=== PATIENT | female | born 1975 | race Caucasian/White ===

== ENCOUNTER → 2018-04-27 | Outpatient (CLI) | payer MEDICAID, OTHER ==
--- NOTE | 2018-04-27 12:51 | EST ---
EXERCISE STRESS DATE OF SERVICE: 04/27/2018 AGE: 43 SEX: Female HT: 5'4" WT: 150 PROTOCOL: Levi STAGE: II DURATION OF EXERCISE: 7 minutes 19 seconds HEART RATE REST: 74 BLOOD PRESSURE REST: 152/92 MAXIMUM HEART RATE ACHIEVED: 151 MAXIMUM BLOOD PRESSURE: 174/69 85% MPHR: 150 100% MPHR: 177 METS: 8.5 INDICATIONS: Chest pain. CLINICAL INFORMATION: Baseline EKG revealed normal sinus rhythm without significant ST-T changes. Patient walked on a standard Levi protocol for 7 minutes 19 seconds achieved a maximal heart rate of 151 beats per minute which is 85% of predicted maximal. She developed some calf pain and had shortness of breath, but did not have angina. There was some baseline artifact but no clear-cut evidence of ischemia was noted. By EKG criteria, this is a negative stress test with limited exercise capacity. Her peak blood pressure was 174/69. Resting blood pressure was 152/92. The patient had some calf discomfort with cramps and shortness of breath but did not have angina. This is however negative stress test by EKG criteria. MMODL / IJN: [id number] /
== END | disposition home or self-care (01) ==
LOC: RADNMMAIN 10:57
PROVIDERS: ATTEND Nurse Practitioner
DX: R07.89 Other chest pain (principal)
CPT/HCPCS: 93017

== ENCOUNTER → 2018-10-04 | Outpatient (CLI) | payer MEDICAID ==
--- NOTE | 2018-10-04 11:00 | MM ---
Reason for exam: screening (asymptomatic). Last mammogram was performed 1 year and 1 month ago. History: Patient is nulliparous. Family history of breast cancer in grandmother, breast cancer in aunt, and breast cancer in cousin. Took hormonal contraceptives for 2 years. Physical Findings: A clinical breast exam by your physician is recommended on an annual basis and results should be correlated with mammographic findings. MG 3D Screening Mammo W/Cad Bilateral CC and MLO view(s) were taken. Prior study comparison: August 24, 2017, bilateral MG 3d screening mammo w/cad. July 28, 2016, bilateral MG 3d screening mammo w/cad. The breast tissue is heterogeneously dense. This may lower the sensitivity of mammography. No significant changes when compared with prior studies. ASSESSMENT: Benign, BI-RAD 2 RECOMMENDATION: Routine screening mammogram of both breasts in 1 year.
== END | disposition home or self-care (01) ==
LOC: RADMAMWWP 06:48
PROVIDERS: ATTEND Internal Medicine Geriatric Medicine
DX: Z12.31 Encounter for screening mammogram for malignant neoplasm of breast (principal)
CPT/HCPCS: 77063; 77067

== ENCOUNTER 2018-10-26 16:20 | Emergency (ER) | payer MEDICAID ==
[2018-10-26 16:42] VITALS: RESP 18; TEMP 97.2
[2018-10-26] MEDS ORDERED: SODIUM CHLORIDE 0.9% 1,000 ML IV STA (16:48)
[2018-10-26] MEDS ORDERED: KETOROLAC 30 MG/ML 1 ML VIAL IVP STA (17:16)
[2018-10-26 17:29] LABS: Basophils % (A) 0 %; Eosinophils # (A) 0.2 k/uL (0-0.7); Eosinophils % (A) 2 %; HCT 42.9 % (34.0-46.0); Lymphocytes # (A) 1.9 k/uL (1.0-4.8); Lymphocytes % (A) 18 %; MCH 29.7 pg (25.0-35.0); MCHC 32.7 g/dL (31.0-37.0); MCV 90.7 fL (80.0-100.0); Mean Platelet Volume 7.5; Monocytes # (A) 0.5 k/uL (0-1.0); Monocytes % (A) 5 %; Neutrophils # (A) 8.1 k/uL (1.3-7.7); Neutrophils % (A) 75 %; Platelet Count 301 k/uL (150-450); RBC 4.73 m/uL (3.80-5.40); WBC 10.9 k/uL (3.8-10.6)
[2018-10-26 17:35] LABS: Appearance,Urine Clear (Clear); Bacteria,Urine Rare /hpf; Bilirubin,Urine Negative (Negative); Blood,Urine Moderate (Negative); Color,Urine Light Yellow; Glucose,Urine (UA) Negative (Negative); Ketones,Urine Negative (Negative); Leukocyte Esterase,Urine Negative (Negative); Nitrite,Urine Negative (Negative); PH, Urine 5.5 (5.0-8.0); Protein,Urine Negative (Negative); RBC,Urine 15 /hpf (0-5); Specific Gravity,Urine 1.005 (1.001-1.035); Squamous Epithelial Cell,Urine 2 /hpf (0-4); Urobilinogen,Urine <2.0 mg/dL (<2.0); WBC,Urine <1 /hpf (0-5)
[2018-10-26 17:39] LABS: ALT 24 U/L (9-52); AST 27 U/L (14-36); Albumin 4.8 g/dL (3.5-5.0); Alkaline Phosphatase 59 U/L (38-126); Amylase 60 U/L (30-110); Anion Gap 8 mmol/L; Blood Urea Nitrogen 15 mg/dL (7-17); Calcium 9.8 mg/dL (8.4-10.2); Carbon Dioxide 27 mmol/L (22-30); Chloride 105 mmol/L (98-107); Glucose 85 mg/dL (74-99); Lipase 148 U/L (23-300); Potassium 3.7 mmol/L (3.5-5.1); Sodium 140 mmol/L (137-145); Total Bilirubin 0.5 mg/dL (0.2-1.3); Total Protein 7.9 g/dL (6.3-8.2)
--- NOTE | 2018-10-26 17:55 | ED ---
Abdominal Pain HPI - General Chief Complaint: Abdominal Pain Stated Complaint: Shooting Side Pain Time Seen by Provider: 10/26/18 16:48 Source: patient, RN notes reviewed Mode of arrival: ambulatory Limitations: no limitations - History of Present Illness Initial Comments: 43-year-old female presents emergency Department chief complaint of left-sided rib pain. Patient states that it started last night. Patient states has been consistently worse with deep inspiration. States it is worse with movement. Denies any recent URI symptoms including cough or chest congestion. Patient states she has no history DVT or PE. Patient has no prior cardiac disease including hypertension, hyperlipidemia, diabetes or family heart disease. Patient states she does have a history kidney stones but this feels different. She states she has no abdominal pain denies any nausea, vomiting, diarrhea constipation. - Related Data Home Medications Medication Instructions Recorded Confirmed Multivitamin,Therapeutic [Thera] 1 tab PO DAILY 10/26/18 10/26/18 Omeprazole 20 mg PO DAILY 10/26/18 10/26/18 Vitamin B Complex 1 cap PO DAILY 10/26/18 10/26/18 Zinc 50 mg PO DAILY 10/26/18 10/26/18 Previous Rx's Medication Instructions Recorded Ibuprofen [Motrin] 600 mg PO Q8HR PRN #30 tab 10/26/18 Allergies Allergy/AdvReac Type Severity Reaction Status Date / Time latex AdvReac DRY SKIN Verified 10/26/18 17:06 Review of Systems ROS Statement: Those systems with pertinent positive or pertinent negative responses have been documented in the HPI. ROS Other: All systems not noted in ROS Statement are negative. Past Medical History Past Medical History: GI Bleed Additional Past Medical History / Comment(s): ULCER 10 YEARS AGO, UTI, ANXIETY( XANAX), ADHD(ADDERAL), FRONT TOP TOOTH IMPLANT History of Any Multi-Drug Resistant Organisms: None Reported Past Surgical History: No Surgical Hx Reported Additional Past Surgical History / Comment(s): CYST ON OVARY/UTERUS/BOWEL DRAINED, IMPLANTED TOP FRONT TOOTH Additional Past Anesthesia/Blood Transfusion Reaction / Comment(s): DIFFICULTY WAKING. CLAUSTERPHOBIA. Past Psychological History: ADD/ADHD, Anxiety Smoking Status: Former smoker Past Alcohol Use History: None Reported Past Drug Use History: None Reported - Past Family History Mother Family Medical History: Osteoarthritis (OA) Father Family Medical History: Cancer, Coronary Artery Disease (CAD) Additional Family Medical History / Comment(s): LUNG CANCER, SMOKER General Exam Limitations: no limitations General appearance: alert, in no apparent distress Head exam: Present: atraumatic, normocephalic, normal inspection Neck exam: Present: normal inspection, full ROM. Absent: tenderness, meningismus, lymphadenopathy Respiratory exam: Present: normal lung sounds bilaterally, chest wall tenderness (Left-sided). Absent: respiratory distress, wheezes, rales, rhonchi , stridor Cardiovascular Exam: Present: regular rate, normal rhythm, normal heart sounds. Absent: systolic murmur, diastolic murmur, rubs, gallop, clicks GI/Abdominal exam: Present: soft, normal bowel sounds. Absent: distended, tenderness, guarding, rebound, rigid Back exam: Absent: CVA tenderness (R), CVA tenderness (L) Skin exam: Present: warm, dry, intact, normal color. Absent: rash Course Vital Signs 10/26/18 10/26/18 16:39 18:35 Temperature 97.2 F L Pulse Rate 100 85 Respiratory 18 18 Rate Blood Pressure 158/86 145/85 O2 Sat by Pulse 100 100 Oximetry Medical Decision Making - Medical Decision Making 43-year-old female presented for left-sided rib pain. Patient has reproducible , worse with deep inspiration pain. CT, x-ray, lab work and EKG was obtained. There are no acute abnormality. Patient has places/costochondritis. Patient discharged with anti-inflammatories. Return parameters were discussed. Patient is stable. - Lab Data Result diagrams: 10/26/18 17:15 10/26/18 17:15 Lab Results 10/26/18 10/26/18 10/26/18 Range/Units 17:15 17:15 17:15 WBC 10.9 H (3.8-10.6) k/uL RBC 4.73 (3.80-5.40) m/uL Hgb 14.0 (11.4-16.0) gm/dL Hct 42.9 (34.0-46.0) % MCV 90.7 (80.0-100.0) fL MCH 29.7 (25.0-35.0) pg MCHC 32.7 (31.0-37.0) g/dL RDW 13.0 (11.5-15.5) % Plt Count 301 (150-450) k/uL Neutrophils % 75 % Lymphocytes % 18 % Monocytes % 5 % Eosinophils % 2 % Basophils % 0 % Neutrophils # 8.1 H (1.3-7.7) k/uL Lymphocytes # 1.9 (1.0-4.8) k/uL Monocytes # 0.5 (0-1.0) k/uL Eosinophils # 0.2 (0-0.7) k/uL Basophils # 0.0 (0-0.2) k/uL D-Dimer (<0.60) mg/L FEU Sodium 140 (137-145) mmol/L Potassium 3.7 (3.5-5.1) mmol/L Chloride 105 (98-107) mmol/L Carbon Dioxide 27 (22-30) mmol/L Anion Gap 8 mmol/L BUN 15 (7-17) mg/dL Creatinine 0.73 (0.52-1.04) mg/dL Est GFR (CKD-EPI)AfAm >90 (>60 ml/min/1.73 sqM) Est GFR (CKD-EPI)NonAf >90 (>60 ml/min/1.73 sqM) Glucose 85 (74-99) mg/dL Calcium 9.8 (8.4-10.2) mg/dL Total Bilirubin 0.5 (0.2-1.3) mg/dL AST 27 (14-36) U/L ALT 24 (9-52) U/L Alkaline Phosphatase 59 (38-126) U/L Troponin I <0.012 (0.000-0.034) ng/mL Total Protein 7.9 (6.3-8.2) g/dL Albumin 4.8 (3.5-5.0) g/dL Amylase 60 (30-110) U/L Lipase 148 (23-300) U/L Urine Color Urine Appearance (Clear) Urine pH (5.0-8.0) Ur Specific [place] (1.001-1.035) Urine Protein (Negative) Urine Glucose (UA) (Negative) Urine Ketones (Negative) Urine Blood (Negative) Urine Nitrite (Negative) Urine Bilirubin (Negative) Urine Urobilinogen (<2.0) mg/dL Ur Leukocyte Esterase (Negative) Urine RBC (0-5) /hpf Urine WBC (0-5) /hpf Ur Squamous Epith Cells (0-4) /hpf Urine Bacteria (None) /hpf 10/26/18 10/26/18 Range/Units 17:15 17:15 WBC (3.8-10.6) k/uL RBC (3.80-5.40) m/uL Hgb (11.4-16.0) gm/dL Hct (34.0-46.0) % MCV (80.0-100.0) fL MCH (25.0-35.0) pg MCHC (31.0-37.0) g/dL RDW (11.5-15.5) % Plt Count (150-450) k/uL Neutrophils % % Lymphocytes % % Monocytes % % Eosinophils % % Basophils % % Neutrophils # (1.3-7.7) k/uL Lymphocytes # (1.0-4.8) k/uL Monocytes # (0-1.0) k/uL Eosinophils # (0-0.7) k/uL Basophils # (0-0.2) k/uL D-Dimer 1.06 H (<0.60) mg/L FEU Sodium (137-145) mmol/L Potassium (3.5-5.1) mmol/L Chloride (98-107) mmol/L Carbon Dioxide (22-30) mmol/L Anion Gap mmol/L BUN (7-17) mg/dL Creatinine (0.52-1.04) mg/dL Est GFR (CKD-EPI)AfAm (>60 ml/min/1.73 sqM) Est GFR (CKD-EPI)NonAf (>60 ml/min/1.73 sqM) Glucose (74-99) mg/dL Calcium (8.4-10.2) mg/dL Total Bilirubin (0.2-1.3) mg/dL AST (14-36) U/L ALT (9-52) U/L Alkaline Phosphatase (38-126) U/L Troponin I (0.000-0.034) ng/mL Total Protein (6.3-8.2) g/dL Albumin (3.5-5.0) g/dL Amylase (30-110) U/L Lipase (23-300) U/L Urine Color Light Yellow Urine Appearance Clear (Clear) Urine pH 5.5 (5.0-8.0) Ur Specific [place] 1.005 (1.001-1.035) Urine Protein Negative (Negative) Urine Glucose (UA) Negative (Negative) Urine Ketones Negative (Negative) Urine Blood Moderate H (Negative) Urine Nitrite Negative (Negative) Urine Bilirubin Negative (Negative) Urine Urobilinogen <2.0 (<2.0) mg/dL Ur Leukocyte Esterase Negative (Negative) Urine RBC 15 H (0-5) /hpf Urine WBC <1 (0-5) /hpf Ur Squamous Epith Cells 2 (0-4) /hpf Urine Bacteria Rare H (None) /hpf - EKG Data EKG Comments: EKG performed at 17:09 sinus rhythm with PAC, rate of 85 CO 162 QRS 80 QT/QTC 364/[address] elevation or depression, normal intervals Disposition Clinical Impression: Costochondritis, acute, Pleurisy Disposition: HOME SELF-CARE Condition: Stable Instructions: Costochondritis (ED) Additional Instructions: Please return to the Emergency Department if symptoms worsen or any other concerns. Prescriptions: Ibuprofen [Motrin] 600 mg PO Q8HR PRN #30 tab PRN Reason: Pain Is patient prescribed a controlled substance at d/c from ED?: No Referrals: Zoë Stevens DO [Primary Care Provider] - 1-2 days Time of Disposition: 19:04
--- NOTE | 2018-10-26 18:04 | XR ---
EXAMINATION TYPE: XR chest 2V DATE OF EXAM: 10/26/2018 COMPARISON: NONE HISTORY: Left upper quadrant pain TECHNIQUE: Frontal and lateral views of the chest are obtained. FINDINGS: Heart and mediastinum are normal. Lungs are clear of consolidation. There is no pleural ef fusion. Bony thorax is intact. IMPRESSION: No active cardiopulmonary disease. Normal heart.
--- NOTE | 2018-10-26 18:27 | CT ---
EXAMINATION TYPE: CT chest angio for PE DATE OF EXAM: 10/26/2018 COMPARISON: None HISTORY: SOB, LEFT SIDE CHEST PAIN CT DLP: 239.1 mGycm Automated exposure control for dose reduction was used. CONTRAST: CT Chest for pulmonary embolism performed with with IV Contrast, patient injected with 100 mL of Isov ue 370. FINDINGS: There are 3-D post processed images. There is mild subsegmental atelectasis at the posterior lung bas es. There is no pleural effusion. There is no evidence of a pulmonary mass. There is no pericardial e ffusion. Heart size is normal. There are no hilar masses. There is normal contrast opacification of the pulmonary arteries. There ar e no filling defects. Thoracic aorta is intact without evidence of aneurysm or dissection. There is no mediastinal adenopathy. The bony thorax is intact. There is mild spurring in the thoracic spine. IMPRESSION: No evidence of pulmonary embolism. Minimal atelectasis at the posterior lung bases.
[2018-10-26 18:40] VITALS: BP 145/85; PULSE 85
[2018-10-26] MEDS ORDERED: ACET/COD 300 MG/30 MG STARTER PACK 6 TAB BTL PO STA (19:04)
== END 2018-10-26 19:15 | disposition home or self-care (01) ==
LOC: EC 16:20
DX: M94.0 Chondrocostal junction syndrome [Tietze] (principal); R09.1 Pleurisy; Z87.891 Personal history of nicotine dependence; Z79.899 Other long term (current) drug therapy; Z91.040 Latex allergy status
CPT/HCPCS: 36415; 93005; 85379; 80053; 82150; 83690; 84484; 85025; 81001; 71046; 71275; 99284; 96374; 96361 ×2; J1885; Q9967

== ENCOUNTER → 2019-11-14 | Outpatient (CLI) | payer MEDICAID ==
--- NOTE | 2019-11-14 11:35 | MM ---
Reason for exam: additional evaluation requested from prior study. Last mammogram was performed 1 year and 1 month ago. History: Patient is nulliparous. Family history of breast cancer in grandmother, breast cancer in aunt, and breast cancer in cousin. Took hormonal contraceptives for 2 years. Physical Findings: Nurse Summary: 2cm nodule in the right breast at 5 o'clock (nurse kp). MG 3D Diag Mammo W/Cad PAIGE Bilateral CC, MLO, and XCCL view(s) were taken. Prior study comparison: October 04, 2018, bilateral MG 3d screening mammo w/cad. August 24, 2017, bilateral MG 3d screening mammo w/cad. The breast tissue is heterogeneously dense. This may lower the sensitivity of mammography. No significant new findings when compared with previous films. These results were verbally communicated with the patient and result sheet given to the patient on 11/14/19. ASSESSMENT: Incomplete: need additional imaging evaluation, BI-RAD 0 RECOMMENDATION: Ultrasound of the right breast.
--- NOTE | 2019-11-14 11:37 | USB ---
Reason for exam: additional evaluation requested from abnormal screening. History: Patient is nulliparous. Family history of breast cancer in grandmother, breast cancer in aunt, and breast cancer in cousin. Took hormonal contraceptives for 2 years. US Breast Limited RT Right limited breast ultrasound including focal area of concern, retroareolar and axilla demonstrates a 1.8 x 1.0 x 1.6cm oval, hyperechoic lipoma at 3 o'clock BB. These results were verbally communicated with the patient and result sheet given to the patient on 11/14/19. ASSESSMENT: Suspicious, BI-RAD 4 RECOMMENDATION: Ultrasound core biopsy of the right breast. Called Dr. Stevens's office with mammographic findings and has scheduled an appointment for the patient for 12/20/19 at 2:[address] Perez. Biopsy scheduled for 12/13/19 at 11:30. PRELIMINARY REPORT CALLED AND FAXED TO DR. PEREZ ON 11/14/19.
== END | disposition home or self-care (01) ==
LOC: RADMAMWWP 07:18
PROVIDERS: ATTEND Family Medicine
DX: R92.8 Other abnormal and inconclusive findings on diagnostic imaging of breast (principal); N63.14 Unspecified lump in the right breast, lower inner quadrant
CPT/HCPCS: 77062; 77066

== ENCOUNTER → 2019-12-13 | Day surgery (SDC) | payer MEDICAID ==
[2019-12-13 10:56] VITALS: BP 135/91; PULSE 82; RESP 16; TEMP 98.1
--- NOTE | 2019-12-13 16:18 | USB ---
EXAMINATION TYPE: US discontinued breast bx RT DATE OF EXAM: 12/13/2019 CLINICAL HISTORY: R92.8 abn mamm. TECHNIQUE: Real-time linear array sonography, real-time observation, a real-time scanning was perform ed. COMPARISON: 11/14/2019 FINDINGS: Ultrasound findings appear to be a normal parenchymal lobe. This appears the same as adjacent rest ti ssue. No suspicious shadowing or abnormal margins are identified. Findings were discussed with the patient. This may be related to a lipoma which the patient has other s. Patient was advised for self breast exam and monitoring. In the absence of clinically suspicious f indings, follow-up ultrasound can be performed in 6 months to confirm stability. A suspicious mass for biopsy was not evident and the procedure was terminated prior to skin incision. IMPRESSION: 1. Probably benign findings, breast ultrasound. 2. BI-RADS 3 Recommendations: 1. Follow-up right breast ultrasound 6 months. 2. Patient should continue monthly self breast examination. 3. A negative ultrasound should not preclude biopsy of suspicious palpable abnormalities.
== END ==
LOC: RADUSWWP 10:20
PROVIDERS: ATTEND Surgery
DX: R92.8 Other abnormal and inconclusive findings on diagnostic imaging of breast (principal); Z91.040 Latex allergy status

== ENCOUNTER → 2020-05-29 | Outpatient (CLI) | payer MEDICAID, OTHER ==
[2020-05-29 15:01] LABS: Potassium 4.2 mmol/L (3.5-5.5)
[2020-05-29 15:31] LABS: HCG,Quantitative Serum <2.0 mIU/mL
== END | disposition home or self-care (01) ==
LOC: LABWHC1 09:18
PROVIDERS: ATTEND Dermatology
DX: Q82.8 Other specified congenital malformations of skin (principal); L70.0 Acne vulgaris; L23.9 Allergic contact dermatitis, unspecified cause
CPT/HCPCS: 36415; 84132; 84702

== ENCOUNTER → 2020-07-01 | Outpatient (CLI) | payer MEDICAID, OTHER ==
[2020-07-01 13:25] LABS: Potassium 4.7 mmol/L (3.5-5.1)
[2020-07-01 13:44] LABS: HCG,Quantitative Serum <2.4 mIU/mL
== END | disposition home or self-care (01) ==
LOC: LABWHC1 12:54
PROVIDERS: ATTEND Dermatology
DX: L70.0 Acne vulgaris (principal); L23.9 Allergic contact dermatitis, unspecified cause; Q82.8 Other specified congenital malformations of skin
CPT/HCPCS: 36415; 84132; 84702

== ENCOUNTER → 2020-09-08 | Outpatient (CLI) | payer MEDICAID, OTHER ==
[2020-09-08 18:30] LABS: Potassium 4.9 mmol/L (3.5-5.5)
[2020-09-08 18:52] LABS: HCG,Quantitative Serum <2.0 mIU/mL
== END | disposition home or self-care (01) ==
LOC: LABWHC1 10:26
PROVIDERS: ATTEND Dermatology
DX: L70.0 Acne vulgaris (principal); L23.9 Allergic contact dermatitis, unspecified cause; Q82.8 Other specified congenital malformations of skin
CPT/HCPCS: 36415; 84132; 84702

== ENCOUNTER → 2020-12-04 | Outpatient (CLI) | payer MEDICAID | END | disposition home or self-care (01) | LOC: LABWHC1 11:05 | PROVIDERS: ATTEND Dermatology | DX: L70.0 Acne vulgaris (principal) | CPT/HCPCS: 36415; 84702 ==

== ENCOUNTER → 2023-07-31 | Outpatient (CLI) | payer MEDICAID ==
--- NOTE | 2023-07-31 09:54 | MM ---
Reason for Exam: Screening (asymptomatic). Last mammogram was performed 3 year(s) and 9 month(s) ago. Patient History: Menarche at age 15. Patient has no children. Postmenopausal. Patient used Hormonal Contraceptives for 2 years. 12/13/2019, US discontinued breast bx RT on the right side. Maternal grandmother had breast cancer. Maternal cousin had breast cancer. Maternal aunt had breast cancer. Risk Values: Ligia 5 year model risk: 0.9%. NCI Lifetime model risk: 9.3%. Prior Study Comparison: 08/24/2017 Bilateral Screening Mammogram, [facility]. 10/04/2018 Bilateral Screening Mammogram, [facility]. 11/14/2019 Bilateral Diagnostic Mammogram, [facility]. Tissue Density: The breast tissue is heterogeneously dense. This may lower the sensitivity of mammography. Findings: Analyzed By CAD. There is no suspicious group of microcalcifications or new suspicious mass in either breast. Overall Assessment: Negative, BI-RAD 1 Management: Screening Mammogram of both breasts in 1 year. A clinical breast exam by your physician is recommended on an annual basis and results should be correlated with mammographic findings. Note on Ligia scores and lifetime risk: 1. A Ligia score greater than 3% is considered moderate risk. If this is the case, consider specialist referral to assess eligibility for a risk reducing agent. If overall lifetime risk for the development of breast cancer is 20% or higher, the patient may qualify for future screening with alternating mammogram and breast MRI. Electronically signed and approved by: Barrington Gaxiola D.O.
== END | disposition home or self-care (01) ==
LOC: RADMAMWWP 09:31
PROVIDERS: ATTEND Family Medicine
DX: Z12.31 Encounter for screening mammogram for malignant neoplasm of breast (principal); Z78.0 Asymptomatic menopausal state; Z80.3 Family history of malignant neoplasm of breast
CPT/HCPCS: 77063; 77067

== ENCOUNTER → 2024-10-25 | Outpatient (CLI) | payer BC ==
--- NOTE | 2024-10-25 17:52 | MM ---
Reason for Exam: Screening (asymptomatic). Last mammogram was performed 1 year(s) and 3 month(s) ago. Patient History: Menarche at age 15. Patient has no children. Postmenopausal. Patient used Hormonal Contraceptives for 2 years. 12/13/2019, US discontinued breast bx RT on the right side. Maternal grandmother had breast cancer. Maternal cousin had breast cancer, age 40. Maternal aunt had breast cancer, age 50. Risk Values: Ligia 5 year model risk: 0.9%. NCI Lifetime model risk: 9.2%. Prior Study Comparison: 10/04/2018 Bilateral Screening Mammogram, [facility]. 11/14/2019 Bilateral Diagnostic Mammogram, [facility]. 07/31/2023 Bilateral MG 3D screening mammo w/cad, [facility]. Tissue Density: The breasts are heterogeneously dense, which may obscure small masses. Findings: Analyzed By CAD. The pattern is symmetrical. No significant interval change. No suspicious groups of microcalcifications, spiculated or lobular masses, architectural distortion or other secondary signs of malignancy are mammographically apparent. Overall Assessment: Benign, BI-RAD 2 Management: Screening Mammogram of both breasts in 1 year. A negative mammogram report should not preclude additional follow up of suspicious palpable abnormalities. Patient should continue monthly self breast exam. A clinical breast exam by your physician is recommended on an annual basis and results should be correlated with mammographic findings. Note on Ligia scores and lifetime risk: 1. A Ligia score greater than 3% is considered moderate risk. If this is the case, consider specialist referral to assess eligibility for a risk reducing agent. 2. If overall lifetime risk for the development of breast cancer is 20% or higher, the patient may qualify for future screening with alternating mammogram and breast MRI. [facility], , 10/25/2024 5:49 PM. Electronically signed and approved by: Alvaro Castillo D.O. Radiologis
== END | disposition home or self-care (01) ==
LOC: RADMAMWWP 10:39
PROVIDERS: ATTEND Family Medicine
DX: Z12.31 Encounter for screening mammogram for malignant neoplasm of breast (principal); Z78.0 Asymptomatic menopausal state; Z80.3 Family history of malignant neoplasm of breast; R92.323 Mammographic fibroglandular density, bilateral breasts
CPT/HCPCS: 77067

== ENCOUNTER → 2024-10-28 | Outpatient (CLI) | payer BC ==
--- NOTE | 2024-10-28 15:26 | NM ---
EXAMINATION TYPE: NM hepatobiliary w EF DATE OF EXAM: 10/28/2024 COMPARISON: Gallbladder ultrasound 09/03/2024, CT abdomen and pelvis 07/31/2023 CLINICAL INDICATION: Female, 49 years old with history of R10.11 Rt Upper Quadrant Pain; TECHNIQUE: After the intravenous administration of 5.1 mCi Tc 99m Mebrofenin hepatobiliary scintigrap hy is performed. Immediate images post injection. FINDINGS: There is satisfactory initial accumulation of tracer by the liver. The gallbladder is visualized wit hin 16 minutes. The small bowel activity is noted within 16 minutes. At one hour 8 ounces of oral e nsure plus is given to mimic CCK and gallbladder ejection fraction is calculated at 7 %.There is no s cintigraphic evidence of cystic or common bile duct obstruction to suggest acute cholecystitis. IMPRESSION: 1. Gallbladder dyskinesia with ejection fraction of 7%. 2. No evidence for acute cholecystitis. [facility], , 10/28/2024 3:24 PM
== END | disposition home or self-care (01) ==
LOC: MERGE 10-07 07:00 → RADNMMAIN 12:47
PROVIDERS: ATTEND Family Medicine
DX: K82.8 Other specified diseases of gallbladder (principal); R10.11 Right upper quadrant pain
CPT/HCPCS: 78226; A9537

== ENCOUNTER 2025-03-31 06:08 | Day surgery (SDC) | payer BC ==
[2025-03-31] MEDS ORDERED: droPERidol 2.5 MG/ML VIAL IVP PRN (06:44)
[2025-03-31] MEDS ORDERED: LIDOCAINE 1% (10MG/ML) FOR IV START INTRADERMA PRN (06:44)
[2025-03-31] MEDS: IV FLUID CONTINUATION 1,000 ML IV ONE (07:15)
[2025-03-31] MEDS: DEXAMETHASONE SOD PHOSPHATE 4 MG/ML 1 ML VIAL IV ONE (07:16)
[2025-03-31] MEDS: SCOPOLAMINE 1 MG/72 HR PATCH TRANSDERM ONE (07:16)
[2025-03-31] MEDS: LACTATED RINGERS 1,000 ML IV SCH (07:17)
[2025-03-31] MEDS: HEPARIN SODIUM,PORCINE 5,000 UNIT/ML 1 ML VIAL SQ PRN (07:17)
[2025-03-31] MEDS: ACETAMINOPHEN TAB 500 MG TAB PO PRN (07:17)
[2025-03-31] MEDS: ONDANSETRON 4 MG/2 ML VIAL IVP ONE (07:17)
[2025-03-31] MEDS ORDERED: GLYCOPYRROLATE 0.2 MG/ML 2 ML VIAL ONE (07:25)
[2025-03-31] MEDS ORDERED: LIDOCAINE 1% INJ 10MG/ML (20 ML MDV) ONE (07:25)
[2025-03-31] MEDS ORDERED: SUCCINYLCHOLINE CHLORIDE 200 MG/10 ML VIAL IV ONE (07:25)
[2025-03-31] MEDS ORDERED: PROPOFOL 10 MG/ML 20 ML VIAL IV ONE (07:25)
[2025-03-31] MEDS ORDERED: KETOROLAC 15 MG/ML 1 ML VIAL ONE (07:25)
[2025-03-31] MEDS ORDERED: MIDAZOLAM 2 MG/2 ML VIAL ONE (07:25)
[2025-03-31] MEDS ORDERED: ROCURONIUM 10 MG/ML (5 ML VIAL) IV ONE (07:25)
[2025-03-31] MEDS ORDERED: NEOSTIGMINE 1 MG/ML 10 ML VIAL ONE (07:25)
[2025-03-31] MEDS ORDERED: fentaNYL (PF) 50 MCG/ML 2 ML AMP ONE (07:25)
--- NOTE | 2025-03-31 07:27 | P.GSHP ---
History of Present Illness H&P Date: 03/31/25 Chief Complaint: Biliary dyskinesia, right shoulder lipoma 50-year-old female seen in the office back in October. Patient with right upper quadrant discomfort after greasy foods. Pain radiates to the right back. HIDA scan shows a low ejection fraction of 7%. Patient also complaining of a lipomatous mass right shoulder region. Increasing in size. Sore at times. Past Medical History Past Medical History: GERD/Reflux, GI Bleed Additional Past Medical History / Comment(s): ULCER 10 YEARS AGO, feet and fingers swelling lately, bloating,. UTI. FRONT TOP TOOTH IMPLANT History of Any Multi-Drug Resistant Organisms: None Reported Past Surgical History: No Surgical Hx Reported Additional Past Surgical History / Comment(s): ovarian cyst removal Additional Past Anesthesia/Blood Transfusion Reaction / Comment(s): DIFFICULTY WAKING. CLAUSTERPHOBIA. Smoking Status: Vaper - Past Family History Mother Family Medical History: Osteoarthritis (OA) Father Family Medical History: Cancer, Coronary Artery Disease (CAD) Additional Family Medical History / Comment(s): LUNG CANCER, SMOKER Medications and Allergies Home Medications Medication Instructions Recorded Confirmed Type ALPRAZolam [Xanax] 0.5 mg PO HS PRN 09/03/24 03/31/25 History Lisdexamfetamine Dimesylate 40 mg PO DAILY 09/03/24 03/31/25 History [Vyvanse] Folic Acid 0.4 mg PO DAILY 03/27/25 03/27/25 History Pantoprazole Sodium 40 mg PO DAILY 03/27/25 03/31/25 History Vit C (Unk) 500 mg PO DAILY 03/27/25 03/27/25 History Vital Pre Biotic 1 tab PO DAILY 03/27/25 03/27/25 History Zinc Gluconate [Zinc] 50 mg PO DAILY 03/27/25 03/27/25 History Fexofenadine/Pseudoephedrine 1 tab PO DAILY PRN 03/31/25 03/31/25 History [Sally-D 24 Hour Tablet] Allergies Allergy/AdvReac Type Severity Reaction Status Date / Time latex AdvReac DRY SKIN Verified 03/31/25 06:45 sulfamethoxazole AdvReac Unknown Verified 03/31/25 06:45 [From Bactrim] trimethoprim [From Bactrim] AdvReac Unknown Verified 03/31/25 06:45 Surgical - Exam Vital Signs Temp Pulse Resp BP Pulse Ox 97.8 F 74 16 137/80 100 03/31/25 07:02 03/31/25 07:02 03/31/25 07:02 03/31/25 07:02 03/31/25 07:02 Physical exam: General: Well-developed, well-nourished HEENT: Normocephalic, sclerae nonicteric Abdomen: Nontender, nondistended Extremities: No edema, right shoulder lipoma 5 x 4 cm Neuro: Alert and oriented Assessment and Plan (1) Biliary dyskinesia Narrative/Plan: Will proceed with laparoscopic cholecystectomy, possible open with excision of right shoulder lipoma at this time. Risks of bleeding, infection, bile leak, bile duct injury, retained common bile duct stone, trocar injury, conversion to an open procedure, hernia, anesthesia related complications were reviewed. The patient understands and wishes to proceed. Current Visit: Yes Status: Acute Code(s): K82.8 - OTHER SPECIFIED DISEASES OF GALLBLADDER SNOMED Code(s): 862417605
[2025-03-31] MEDS: ceFAZolin 2 GM in DEXTROSE 5% IN WATER 50 ML IVPB PRN (07:29)
[2025-03-31] MEDS: BUPIVACAINE (PF) 0.25% 30 ML VIAL SQ ONE ×2 (07:56)
--- NOTE | 2025-03-31 09:17 | P.OP ---
Date of Procedure: 03/31/25 Procedure(s) Performed: PREOPERATIVE DIAGNOSIS: Chronic cholecystitis, right shoulder lipomatous mass POSTOPERATIVE DIAGNOSIS: Same PROCEDURE: Laparoscopic cholecystectomy, excision right shoulder lipoma, intermediate closure SURGEON: Stephanie EBL: Minimal see anesthesia record ANESTHESIA: Gen. COMPLICATIONS: None OPERATIVE PROCEDURE: The patient was brought and placed on the operating room table in the supine position. The patient was placed under general anesthesia at that time. The patient was then placed in the left decubitus position. The right supraclavicular shoulder region was prepped and draped sterilely. An curvilinear incision was made overlying the palpable mass. The subcutaneous layers were dissected. The patient's lipoma was easily identified. This was quite lobulated but able to be fully excised using a combination of blunt dissection and cautery. This measured a total of 8 x 4 cm. This was sent to pathology. Subcutaneous tissues were inspected no bleeding was seen. Subcutaneous layer closed using interrupted 3-0 Vicryl sutures skin closed using a running 4-0 Monocryl subcuticular stitch. Skin glue and sterile dressings were applied. Length of intermediate closure is 6 cm. Patient was then placed supine. The abdomen was prepped and draped in the usual sterile fashion. A small vertical infraumbilical incision was made. The fascia was grasped with the Leticia forceps. The fascia was retracted anteriorly. The Veress needle was advanced into the peritoneal cavity. The saline drop test was normal. Insufflation took place up to 15 mmHg. A 5 mm optical trocar was advanced and the peritoneal cavity. 2 additional 5 mm trochars were placed in the right upp er quadrant under direct visualization. A 12 mm trocar was advanced into the epigastric incision site. The gallbladder was retracted superiorly and laterally. The peritoneum overlying the infundibulum was bluntly dissected. The patient's cystic duct was visualized. The junction between the cystic duct common and hepatic duct was identified. The critical view of safety was achieved after blunt dissection. The cystic duct was then divided after placement of 3 12 mm clips on the patient's side and one on the specimen side. The cystic artery was identified and clipped as well. A small vessel was seen along the gallbladder fossa and clipped as well. The gallbladder was then removed from the liver bed using electrocautery. The gallbladder was then removed from the epigastric trocar site with an Endo Catch bag. The gallbladder fossa was irrigated with saline. There was no evidence of any bleeding or biliary drainage seen. The fascia at the 12 millimeter site was closed using a Sonido-Tila 0 Vicryl stitch. The trochars were then removed. The skin at all 4 sites was closed using a 4-0 Monocryl stitch. Skin glue was utilized on the incision sites. At the end of this procedure the sponge and needle counts were correct. DISPOSITION: Stable to the recovery room
[2025-03-31 09:22] VITALS: TEMP 97
[2025-03-31] MEDS: HYDROmorphone 0.5 MG/0.5 ML SYRINGE IVP PRN (09:46)
[2025-03-31 10:33] VITALS: BP 109/67; PULSE 57; RESP 16
[2025-03-31] MEDS ORDERED: IBUPROFEN 600 MG TAB PO SCH (12:00)
[2025-03-31] MEDS ORDERED: ACETAMINOPHEN TAB 325 MG TAB PO SCH (16:00)
== END 2025-03-31 10:51 | disposition home or self-care (01) ==
LOC: OR 06:08
PROVIDERS: ATTEND Surgery
DX: K80.10 Calculus of gallbladder with chronic cholecystitis without obstruction (principal); D17.21 Benign lipomatous neoplasm of skin and subcutaneous tissue of right arm; Z88.2 Allergy status to sulfonamides; Z88.1 Allergy status to other antibiotic agents
CPT/HCPCS: 81025; 47562; 11406; J2250; J0330; J1644; J1100; J2710; J0690; J2405; J2003; J3010; J1885; J2704; J1171; J0665; J1596; 88304